=== PATIENT | male | born 1965 ===

== ENCOUNTER 2020-03-06 06:50 | Day surgery (SDC) | payer OTHER ==
[~2020-03-06 06:50] MED LIST: CHILDREN'S ASPI81 MG PO; MULTI-VITAMIN1 EACH PO; OMEPRAZOLE MAGN20 MG PO; TOPROL XL25 M1 PO
== END 2020-03-06 20:45 | disposition home or self-care (01) ==
LOC: CIR.AMB 06:50
PROVIDERS: ATTEND Colon & Rectal Surgery
DX: K64.4 Residual hemorrhoidal skin tags (principal); K64.8 Other hemorrhoids; Z20.828 Contact with and (suspected) exposure to other viral communicable diseases